=== PATIENT | male | born 1960 | race Caucasian/White ===

== ENCOUNTER 2023-07-13 20:05 | Emergency (ER) | payer MEDICAID ==
[~2023-07-13] VITALS: Ht 172.7 cm; Wt 75.0 kg
[2023-07-13] MEDS ORDERED: IBUPROFEN 800MG TABLET PO ONE (20:45)
[2023-07-13] MEDS ORDERED: HYDROCODONE/ACETAMINOPHEN 10/325MG TABLET PO ONE (20:45)
[2023-07-13] MEDS: IBUPROFEN 400MG TABLET PO NR ×2 (21:56→23:00)
[2023-07-13] MEDS ORDERED: MIDAZOLAM HCL 2 MG/2 ML VIAL IM NR (22:11)
[2023-07-14 00:33] VITALS: O2SAT 97
[2023-07-14 01:40] VITALS: BP 139/70; PULSE 61; RESP 18; TEMP 98.3
== END 2023-07-14 01:40 | disposition home or self-care (01) ==
LOC: ER 20:05
DX: M25.561 Pain in right knee (principal); I10 Essential (primary) hypertension
CPT/HCPCS: 99285; 23650; 73030; 73060; 73562; 96372; J2250